=== PATIENT | female | born 1965 | race Caucasian/White ===

== ENCOUNTER → 2023-10-28 16:52 | Outpatient (REF) | payer BC, SELFPAY | LOC: WDC 16:52 | PROVIDERS: ATTENDING PHYSICIAN Family Medicine | DX: Z12.31 Encounter for screening mammogram for malignant neoplasm of breast (principal) | CPT/HCPCS: 77063; 77067 ==

== ENCOUNTER 2023-11-11 00:20 | Emergency (ER) | payer BC, SELFPAY ==
[2023-11-11 00:21] VITALS: BP 174/104
[2023-11-11] MEDS: VIBRAMYCIN 100 MG PO (02:18)
[2023-11-11] MEDS: FLAGYL 500 MG PO (02:18)
[2023-11-11] MEDS: ADACEL 0.5 ML IM (02:20)
[2023-11-11] MEDS: TORADOL 30 MG IM (02:22)
[2023-11-11 02:31] VITALS: BP 160/90
--- NOTE | 2023-11-11 04:23 | ED.SKININJ ---
HPI-Injury
General
Chief Complaint: Bite
Source: patient and spouse
Exam Limitations: none
Time Seen by Provider: 11/11/23 01:53
Nursing documentation reviewed up to this point in time: agreed with
History of Present Illness-Injury
Initial Injury comments:
58-year-old female with a past medical history of hypertension, hyperlipidemia who presents to the emergency room for dog bite to the face. Patient reports that her dog had a seizure tonight and that after the seizure dog was aggressive and bit her
on the cheek. She sustained deep lacerations to the right cheek, no other injuries. Dog is fully vaccinated. Patient unsure of her own last tetanus shot.
Review of Systems
Review of Systems
All Other Systems: ROS reviewed and negative except as documented in HPI and ROS
Skin: Reports other (Facial laceration)
Phy Exam
Physical Exam
Physical Exam:
General: Well appearing and non-toxic
HEENT: protecting airway
Neck: appears supple
CV: No evidence of cyanosis
Resp: No accessory muscle use
Abd: Non-distended
Extremities: No deformities
Neuro: Alert
Psych: Normal affect
Skin: On patient's right face she has multiple lacerations�she has a smaller approximately 3 cm ragged laceration lateral to the right eye, tiny 2 cm roughly linear laceration near the right side of her chin; on the right cheek itself she has large
gaping curved laceration x 2 with jagged macerated edges, large flap of tissue hanging off the cheek
Scores
Heart Failure Risk
Heart Failure Risk Score: Not Applicable
Heart Score for Chest Pain Patients
STEMI patient?: Not applicable
Withdrawal Assessment of Alcohol
Withdrawal Assessment Completed?: Not applicable
Course
Orders/Labs/Results
Orders:
Orders
11/11/23 01:56
Tetanus/Diphth/Acelpertussis [Adacel] 0.5 ml IM .ONCE ONE
11/11/23 02:09
Doxycycline [Vibramycin] 100 mg PO NOW STA
MetroNIDAZOLE [Flagyl] 500 mg PO NOW STA
11/11/23 02:11
Ketorolac [Toradol] 30 mg .ROUTE .STK-MED ONE
11/11/23 02:22
Ketorolac [Toradol] 30 mg IM NOW STA
Vital Signs
Initial and Last Documented VS:
Initial Vital Signs
Temp Pulse Resp BP Pulse Ox
37.0 C 100 24 174/104 95
11/11/23 00:21 11/11/23 00:21 11/11/23 00:21 11/11/23 00:21 11/11/23 00:21
Last Documented Vital Signs
Temp Pulse Resp BP Pulse Ox
37.0 C 85 20 160/90 95
11/11/23 00:21 11/11/23 02:31 11/11/23 02:31 11/11/23 02:31 11/11/23 00:21
Procedures
Laceration Closure
Right Cheek:
Status of Wound: dirty and bite
Size of Wound in cm: 30 (roughly 30 cm--jagged, macerated, irregular)
Description of Wound Edges: ragged, flap-well vascularized and macerated
Preparation: cleaned with saline and cleaned with Betadine
Anesthesia: 1% Lidocaine
Revision/Debridement: minor revision
Wound exploration: extensive cleaning of contaminated wound
Type of Closure: layered closure
Skin Closure Material: 6-0 nylon (38) and 5-0 chromic gut (9)
Number of sutures: 47
MDM/Problems Addressed
Differential Diagnosis Includes:
Dog bite, complex facial laceration
MDM/Problems Addressed:
58-year-old female presents with complex facial laceration after dog bite as described above. Dog is up-to-date on all vaccines. Patient unsure of her last tetanus�updated tetanus shot here. Wound was vigorously irrigated here in the emergency
room. Wound was debrided, over an hour spent at bedside performing extensive layered closure as documented in procedure note. Referred to plastic surgery for outpatient follow-up. Will start on antibiotics�she is unfortunately allergic to
penicillins and cephalosporins�will treat with doxycycline and metronidazole. Instructed regarding return precautions and signs of infection. All questions answered.
Acute Exacerbation and/or Progression of Chronic Illness:
Acutely hypertensive likely stress reaction with large facial laceration�no signs or symptoms of hypertensive emergency no indication for emergent antihypertensive treatment
Acute Exacerbation and/or Progression of Chronic Illness: HTN
*Pulse Oximetry
Patient hypoxic: no
*Critical Care Note
Total Time (30-74mins, 75-104mins- exclusive of procedures): Not Applicable
Data Reviewed
Source: patient and spouse
ED Attending Note
-
Portions of this chart may have been created with voice recognition software.� Occasional wrong word or��sound alike� substitutions may have occurred due to the inherent limitations of voice recognition software.
Discharge Plan
Departure
Patient Disposition: Home (Routine Discharge)
Date of Disposition: 11/11/23
Time of Disposition: 04:07
Patient with high blood pressure during this ER visit?: Yes
Discharge Problem:
Complex laceration of face, Dog bite
Instructions: Animal Bites (DC), Laceration Repair With Stitches (DC)
Prescriptions:
New
doxycycline hyclate 100 mg tablet
100 mg PO BID Qty: 14 0RF
metronidazole 500 mg tablet
500 mg PO TID Qty: 21 0RF
Referrals:
Chuy Cisneros MD [Active] - Call in 1-3 days for appt (Plastic surgery)
Clara Rowe DO [Family Provider] - Follow up in 2-3 days
Activity Restrictions/Additional Instructions:
You were seen in the emergency room for a dog bite and large laceration of the face. You had 38 stitches placed superficially which need to be removed in 5 to 7 days. I recommend you follow-up with plastic surgeon to have the area reassessed. You
should take the prophylactic antibiotic as prescribed. Return for any signs of infection.
Thank you for visiting the Emergency Department at [facility].
1. Please schedule a follow up appointment as directed. Call first thing tomorrow morning to make an appointment.
2. If indicated, please take your medications as instructed and indicated on discharge paperwork.
3. If any of your symptoms do not improve, or persist, or become more severe within 6-12 hours, please return to the emergency department for further care.
4. Please return to the emergency department if you develop a headache, neck pain/stiffness, fever greater than 100.4F, chest pain, shortness of breath, persistent nausea, vomiting, slurred speech, difficulty walking, numbness/tingling, weakness,
signs of infection or any other symptoms that are worrisome to you.
Please call [phone] if you have any questions.
Interventions
Interventions:
*Risk Screen - Suicide Last Done: 11/11/23 00:21
*General Assessment Last Done: 11/11/23 04:14
*Neglect/Abuse Screening Last Done: 11/11/23 00:21
ED- Fall Risk Assessment Last Done: 11/11/23 04:14
*ED COVID-19 Vaccine History Last Done: 11/11/23 01:48
*Nursing Disposition Last Done: 11/11/23 04:14
ED-Skin Assessment Last Done: 11/11/23 01:45
Discharge Date and Time
Discharge Date/Time: 11/11/23 04:17
Print Language: [email or web address]
== END 2023-11-11 04:17 | disposition home or self-care (01) ==
LOC: EMR 00:20
PROVIDERS: EMERGENCY PHYSICIAN Emergency Medicine; FAMILY PHYSICIAN Family Medicine
DX: S01.451A Open bite of right cheek and temporomandibular area, initial encounter (principal); W54.0XXA Bitten by dog, initial encounter; I10 Essential (primary) hypertension
CPT/HCPCS: 99285; 13132; 13133 ×5; 90471; 96372; 90715

== ENCOUNTER → 2023-11-14 08:05 | Outpatient (REF) | payer BC, SELFPAY | LOC: WOUND 08:05 | PROVIDERS: ATTENDING PHYSICIAN Surgery; FAMILY PHYSICIAN Family Medicine | DX: S01.411A Laceration without foreign body of right cheek and temporomandibular area, initial encounter (principal); W54.0XXA Bitten by dog, initial encounter | CPT/HCPCS: 99213 ==

== ENCOUNTER → 2023-11-17 14:59 | Outpatient (REF) | payer BC, SELFPAY | LOC: WOUND 14:59 | PROVIDERS: ATTENDING PHYSICIAN Surgery; FAMILY PHYSICIAN Family Medicine | DX: S01.411A Laceration without foreign body of right cheek and temporomandibular area, initial encounter (principal); W54.0XXA Bitten by dog, initial encounter | CPT/HCPCS: 99213 ==

== ENCOUNTER → 2024-11-12 16:12 | Outpatient (REF) | payer BC, SELFPAY | LOC: WDC 16:12 | PROVIDERS: ATTENDING PHYSICIAN Family Medicine | DX: Z12.31 Encounter for screening mammogram for malignant neoplasm of breast (principal) | CPT/HCPCS: 77063; 77067 ==